=== PATIENT | male | born 1955 | race Hispanic/Latino ===

== ENCOUNTER 2020-03-28 09:20 | Outpatient (CLI) | payer MEDICARE ==
--- NOTE | 2020-03-28 11:45 | PET ---
EXAM: PET CT skull apex to the feet COMPARISON: None HISTORY: Multiple myeloma TECHNIQUE: A PET/CT was performed from the apex of the skull through the feet after administration of 11.4 millicuries of F-18 FDG. Evaluation was performed on a [facility] workstation. FINDINGS: INTRACRANIAL: No areas of increased or decreased metabolic activity. NECK: No areas of hypermetabolic activity CHEST: No areas of hypermetabolic activity ABDOMEN/PELVIS: No areas of hypermetabolic activity SKELETON: Expansion, lucency and hypermetabolic activity is seen in the left lateral masses of C3 and C4. The largest lytic lesion is in the C4 lateral mass measuring 7 mm in size. Max SUV value is 3.0. LOWER EXTREMITIES: No areas of hypermetabolic activity CT images used for attenuation correction show a 3.8 cm cyst in the left lobe of the liver. Scattered diverticula are seen in the colon. IMPRESSION: Suspicious bony lesions4 seen in the lateral masses of C3 and C4.
== END 2020-03-28 09:21 | disposition home or self-care (01) ==
LOC: PET 09:20
PROVIDERS: ATTEND Internal Medicine Hematology & Oncology
DX: C90.00 Multiple myeloma not having achieved remission (principal); D47.2 Monoclonal gammopathy
CPT/HCPCS: 78816; A9552

== ENCOUNTER 2020-04-04 08:33 | Outpatient (CLI) | payer MEDICARE ==
--- NOTE | 2020-04-04 10:07 | MRI ---
Exam: Cervical spine MRI with and without contrast HISTORY: Monoclonal gammopathy. Abnormal PET imaging. Increased FDG localization involving the C3 and C4 left lateral mass/posterior elements. COMPARISON: None. CORRELATION: PET imaging 03/28/2020. FINDINGS: With regards to the cervical vertebral bodies there is appropriate T1 marrow signal intensity. Cervic al spine vertebral body heights are maintained. There is no cervical spine vertebral body fracture. No significant STIR hyperintensity to suggest vertebral body edema or ligamentous injury. There are t ype II Modic changes at C6-C7. Visualized brain parenchyma, cervicomedullary junction, cervical cord and the upper thoracic cord hav e a normal size and signal intensity. There is no abnormal enhancement of the visualized brain parenchyma and spinal cord. There is appropriate signal intensity involving the right posterior elements, throughout the cervical spine. With regards to the left posterior elements there is T1 marrow signal hypointensity involving the lef t C3, left C4 and left C5 facet. There is a small amount of fluid in the facet joint. Axial T2-weighted images demonstrate a T2 hyperintense focus involving the left C4-C5 facet articulation me asuring 0.6 cm. This T2 hyperintense lesion is felt to correspond to the lucent focus noted on CT used for attenuation correction from recent PET imaging. Additional smaller T2 hyperintense foci are noted in the left facet at the C3-C4 level measuring 0.2 cm. There is mild reactive changes of the soft tissues adjacent to the left C3-C4 and C4-C5 facet. Postcontrast images demonstrate enhancement of the facet joints, adjacent facet articular surfaces as well as the adjacent soft tissues. There does appear to be some enhancement involving the aforementioned T2 hyperintense foci involving the le ft C3-C4 facet and left C4-C5 facets. There does appear to be enhancement of the soft tissues adjacent to the left C4-C5 facet joint. C2-C3: Disc desiccation without significant loss of disc space height. No posterior disc abnormality. No significant central canal stenosis. Patent bilateral neural foramina. C3-C4: Disc desiccation with mild loss of disc space height. Broad-based disc bulge effaces the subar achnoid space. There is mass effect upon the midline cervical cord. Mild to moderate central canal stenosis. Moderate bilateral neural foraminal narrowing. C4-C5: Disc desiccation without significant loss of disc space height. Broad-based disc osteophyte co mplex with a superimposed central disc herniation. There is deformity of the midline cervical cord. No cord signal abnormality. Mild to moderate central canal stenosis. Mild right and moderate left lawson ral foraminal narrowing. C5-C6: Broad-based disc osteophyte complex abuts the thecal sac. Subarachnoid space is nearly effaced . There is flattening deformity of the cervical cord. Moderate central canal stenosis. Mild right and moderate left neural foraminal narrowing. C6-C7: Disc desiccation with mild loss of disc space height. Broad-based disc bulge. Mild central can al stenosis. Moderate bilateral neural foraminal narrowing C7-T1: Small right paracentral disc herniation. Mild central canal stenosis. Mild bilateral neural fo raminal narrowing. IMPRESSION: 1. Multilevel degenerative changes of the cervical spine as described above. 2. Hypertrophic changes with fluid involving the left facet joint at C3-C4 and C4-C5. There does appe ar to be T2 hyperintensity and enhancement corresponding to the FDG avid foci noted on recent PET imaging. Possibility of reactive changes from a facet arthropathy is favored given the underlying fac et arthropathy. There also appears be enhancing soft tissue changes adjacent to the left facet joint at C4-C5, likely reactive. Transcribed Date/Time: 04/04/2020 12:15 PM
== END 2020-04-04 08:34 | disposition home or self-care (01) ==
LOC: MRI 08:33
PROVIDERS: ATTEND Internal Medicine Hematology & Oncology
DX: R93.7 Abnormal findings on diagnostic imaging of other parts of musculoskeletal system (principal); D47.2 Monoclonal gammopathy; M47.812 Spondylosis without myelopathy or radiculopathy, cervical region
CPT/HCPCS: 72156